=== PATIENT | female | born 1985 | race Caucasian/White ===

== ENCOUNTER 2017-11-27 11:34 | Emergency (ER) | payer OTHER, BC ==
[~2017-11-27] VITALS: Ht 162.6 cm; Wt 69.8 kg
[~2017-11-27 11:34] MED LIST: COMBIVIR1 TABLET PO; DEPO-PROVER150 MG/ML IM; EFFEXOR XR150 MG PO; GINGER ROOT550 MG PO; LEXAPRO20 MG PO; MOTRIN800 MG PO; PERCOCET 5/31 TABLET PO; PHENERGAN25 MG PR; PROMETHAZINE HC25 M1 PO; SOMA250 MG PO; SPRINTEC1 EACH PO; TYLENOL WITH C1 EACH PO; VENLAFAXINE HC150 M1 PO; XANAX0.25 MG PO; XANAX0.5 MG PO
[2017-11-27 12:19] VITALS: BP 115/78
[2017-11-27] MEDS ORDERED: NORCO 5/3251 TABLET PO (15:44)
[2017-11-27] MEDS ORDERED: FLEXERIL10 MG PO (15:44)
[2017-11-27] MEDS ORDERED: MOBIC7.5 MG PO (15:44)
== END 2017-11-27 16:02 | disposition home or self-care (01) ==
LOC: EME 11:34
DX: M54.16 Radiculopathy, lumbar region (principal); Z88.5 Allergy status to narcotic agent; Z88.2 Allergy status to sulfonamides
CPT/HCPCS: 72110; 99281; 99284